=== PATIENT | male | born 1955 | race Hispanic/Latino ===

== ENCOUNTER → 2025-05-23 | Emergency (ER) | payer MEDICARE ==
[~2025-05-23] VITALS: Ht 172.7 cm; Wt 62.1 kg
[~2025-05-23] MED LIST: NIRM1TAB7 PO
--- NOTE | 2025-05-23 15:45 | EKG ---
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
--- NOTE | 2025-05-23 16:04 | HMCIMG ---
EXAM: CR Chest, 2 View. CLINICAL HISTORY: cough COMPARISON: None provided. FINDINGS: LUNGS: There is no mass, infiltrate, or acute pulmonary abnormality. PLEURAL SPACES: No pleural effusion or pneumothorax. MEDIASTINUM: The heart was predominately situated on the right side of the chest. The patient is slightly rotated to the right. BONES: No aggressive appearing osseous lesion seen. IMPRESSION: 1. No acute cardiopulmonary findings. 2. Dextrocardia. Recommend CT chest for further evaluation. /[place]
--- NOTE | 2025-05-23 16:10 | NUR ---
PT RETURNED FORM CT AT THIS TIME
[2025-05-23 16:13] LABS: IMMATURE GRANULOCYTE ABSOLUTE 0.01 K/uL (0-1); NUCLEATED RED BLOOD CELLS 0.0 % (0.0-0.19); PLATELET COUNT (AUTO) 168 K/uL (130-400); RED BLOOD CELL COUNT(AUTO) 4.39 MIL/uL (4.50-6.20); RED CELL DISTRIBUTION WIDTH 13.4 % (11.0-15.5); WHITE BLOOD COUNT (AUTO) 4.2 K/uL (4.8-10.8)
[2025-05-23 16:24] LABS: INR 1.08 (0.85-1.15)
[2025-05-23 16:25] LABS: CREATININE 0.7 mg/dL (0.5-1.3); GLOMERULAR FILTR. RATE CALC 100.0 mL/min (>90); GLUCOSE,RANDOM 119.0 mg/dL (70-105); SODIUM SERUM 140.0 mmol/L (136-145); UREA NITROGEN, BLOOD 17.0 mg/dL (7-18)
[2025-05-23 16:33] LABS: CREATINE KINASE, TOTAL 166.0 U/L (21-232)
--- NOTE | 2025-05-23 16:38 | HMCIMG ---
EXAM: CT Head Without Intravenous Contrast. CLINICAL HISTORY: 69-year-old male with syncope. TECHNIQUE: Axial computed tomography images of the head/brain without intravenous contrast. Dose reduction technique was used including one or more of the following: automated exposure control, adjustment of mA and kV according to patient size, and/or iterative reconstruction. COMPARISON: None. FINDINGS: BRAIN: Moderate atrophy. Moderate chronic ischemic changes. No acute intraparenchymal hemorrhage. No mass lesion. No CT evidence for acute territorial infarct. No midline shift or extra-axial collection. VENTRICLES: No hydrocephalus. ORBITS: The orbits are unremarkable. SINUSES AND MASTOIDS: The paranasal sinuses and mastoid air cells are clear. SOFT TISSUES: No significant facial or scalp soft tissue swelling evident. No radiopaque foreign body is seen. BONES: No acute skull fracture. IMPRESSION: 1. No acute intracranial abnormality. 2. Moderate atrophy and moderate chronic ischemic changes. /[place]
[2025-05-23 16:49] LABS: INFLUENZA TYPE A Negative For Type A (NEGATIVE); INFLUENZA TYPE B Negative For Type B (NEGATIVE)
--- NOTE | 2025-05-23 16:51 | HMCIMG ---
EXAM: CT Cervical Spine Without Intravenous Contrast. CLINICAL HISTORY: 69-year-old male with syncope. TECHNIQUE: Axial computed tomography images of the cervical spine without intravenous contrast. Sagittal and coronal reformations performed. Dose reduction technique was used including one or more of the following: automated exposure control, adjustment of mA and kV according to patient size, and/or iterative reconstruction. CONTRAST: None. COMPARISON: None provided. FINDINGS: BONES: No acute fracture or focal osseous lesion. Bony alignment is anatomic. DISCS / DEGENERATIVE CHANGES: Moderate to severe degenerative changes in the cervical spine, including disc space narrowing and osteophyte formation. SOFT TISSUES: No prevertebral soft tissue swelling. Moderate atherosclerotic calcifications of the bilateral carotid arteries. IMPRESSION: 1. No acute cervical spine fracture or dislocation. 2. Moderate to severe degenerative changes in the cervical spine, including disc space narrowing and osteophyte formation. 3. Moderate atherosclerotic calcifications of the bilateral carotid arteries, recommend carotid ultrasound for further workup. /[place]
[2025-05-23 17:00] LABS: COVID19 (SARS ANTIGEN RAPID) POSITIVE FOR SARS AG (NEGATIVE)
[2025-05-23] MEDS: LACTATED RINGERS 1000ML 1,000 ML IV ONE (17:33)
--- NOTE | 2025-05-23 17:35 | ERN ---
General Chief Complaint: Syncope Stated Complaint: SYNCOPE Time Seen by MD: 15:30 History of Present Illness Initial Comments 69-year-old male who presents for syncope x2. Patient reports he was using the restroom he had two episodes. Loss of consciousness. The 1st when he was walking, he had no preceding events. He went to the ground. Apparently he came to, and then the patient's girlfriend reports he had a 2nd syncopal episode. They are both brief. No seizure activity. He denies any preceding chest pains dyspnea has palpitations or any other symptoms. He does report that he has been having a sore throat and a bit of the chills last night. No vomiting or diarrhea. Allergies: Coded Allergies: No Known Drug Allergies (Unverified Allergy, Unknown, 05/23/25) Past Medical History Past Medical History: Hypertension Past Surgical History: Other ROS Dictation CONSTITUTIONAL: No chills, no fever, no weakness, no diaphoresis, no malaise. HEAD/FACE: No signs of trauma. EENT: No eye pain, no blurred vision, no tearing, no double vision, no ear pain, no ear discharge, no nose pain, no nasal congestion, no throat pain, no throat swelling, no mouth pain. RESPIRATORY: No cough, no orthopnea, no SOB, no stridor, no wheezing. CARDIOVASCULAR: Syncope. GASTROINTESTINAL/ABDOMINAL: No abdominal pain, no constipation, no diarrhea, no nausea, no vomiting. GENITOURINARY: No abnormal discharge, no dysuria, no frequent urination, no hematuria. No complaints of pain in the genitals. MUSCULOSKELETAL: No back pain, no gout, no joint pain, no joint swelling, no muscle pain, no muscle stiffness, no neck pain. INTEGUMENTARY: No change in color, no change in hair/nails, no dryness, no lesion, no lumps, no rash. NEUROLOGICAL/PSYCH: No anxiety, not depressed, no emotional problem, no headache, no numbness, no pre-existing deficit, no history of seizures, no tremors, no weakness. HEMATOLOGIC/LYMPHATIC: Not anemic, no history of blood clots, no apparent bleeding, no bruising, glands not swollen. All Systems Negative, Except as Noted. Physical Exam Physical Exam Dictation VITAL SIGNS: Reviewed. GENERAL APPEARANCE: Alert, oriented x3, no acute distress. EYES: PERRL, pink conjunctivas, eyelid no trauma, anterior chamber clear. EARS: Pinnas intact and no signs of trauma or erythema. Ear canals clear and no discharge. TMs no erythema. NOSE: No discharge, no bleeding. OROPHARYNX: Mouth normal, teeth no caries, tongue pink. Pharynx clear, no erythema. Tonsils no exudates, no abscesses noted. Mucous membrane moist. NECK: Supple, non-tender, no thyromegaly, no masses, no JVD, no bruits. BREAST: Deferred. CHEST: No tenderness, no crepitus, no paradoxical movement, no retractions. LUNGS: Clear, well-ventilated, symmetric, no rales, no wheezing, no rhonchi, no stridor, good breath sounds bilaterally. HEART: Regular rate, regular rhythm, no murmur, no gallops. VASCULAR: No peripheral edema. ABDOMEN: Soft, positive bowel sounds, nondistended, no guarding, nontender, no rebound, no masses no hepatomegaly, no splenomegaly, no Bui's sign, no hernias. RECTAL: Deferred. GENITAL: Deferred. NEUROLOGICAL: Normal speech, gross motor function intact, gross sensory function intact. MUSCULOSKELETAL: Neck nontender, full range of motion, back nontender, full range of motion. EXTREMITIES: Nontender, full range of motion. SKIN: Color pink, dry, no turgor, no rash, no lacerations, no abrasions, no contusions. LYMPHATICS: Deferred. Results Laboratory and Microbiology Lab and Micro Result Laboratory Tests Test 05/23/25 15:52 05/23/25 16:00 White Blood Count 4.2 K/uL (4.8-10.8) L Red Blood Count 4.39 MIL/uL (4.50-6.20) L Hemoglobin 13.5 g/dL (14.0-18.0) L Hematocrit 39.1 % (42-54) L Mean Corpuscular Volume 89.1 fL (79-99) Mean Corpuscular Hemoglobin 30.8 pg (27.0-33.0) Mean Corpuscular Hemoglobin Concent 34.5 g/dL (32.0-36.0) Red Cell Distribution Width 13.4 % (11.0-15.5) Platelet Count 168 K/uL (130-400) Mean Platelet Volume 10.6 fL (7.5-10.5) H Immature Granulocyte % (Auto) 0.2 % (0-1) Neutrophils (%) (Auto) 67.3 % (40.0-77.0) Lymphocytes (%) (Auto) 16.5 % (21.0-51.0) L Monocytes (%) (Auto) 15.8 % (3.0-13.0) H Eosinophils (%) (Auto) 0.0 % (0.0-8.0) Basophils (%) (Auto) 0.2 % (0.0-5.0) Neutrophils # (Auto) 2.9 K/uL (1.8-7.7) Lymphocytes # (Auto) 0.7 K/uL (1.0-4.8) L Monocytes # (Auto) 0.7 K/uL (0.1-1.0) Eosinophils # (Auto) 0.00 K/uL (0.00-0.70) Basophils # (Auto) 0.01 K/uL (0.00-0.20) Absolute Immature Granulocyte (auto 0.01 K/uL (0-1) Nucleated Red Blood Cells 0.0 % (0.0-0.19) White Cell Morphology Comment See comments Prothrombin Time 11.4 SEC (9.6-11.6) Prothromb Time International Ratio 1.08 (0.85-1.15) Activated Partial Thromboplast Time 30.2 SEC (26.3-35.5) Sodium Level 140 mmol/L (136-145) Potassium Level 3.3 mmol/L (3.5-5.1) L Chloride Level 103 mmol/L (101-111) Carbon Dioxide Level 31 mmol/L (21-32) Blood Urea Nitrogen 17 mg/dL (7-18) Creatinine 0.7 mg/dL (0.5-1.3) Glomerular Filtration Rate Calc 100 mL/min (>90) Random Glucose 119 mg/dL (70-105) H Lactic Acid Level 0.8 mmol/L (0.8-2.5) Total Calcium 8.6 mg/dL (8.5-10.1) Total Creatine Kinase 166 U/L (21-232) Troponin I High Sensitivity 7.6 ng/L (4-75) B-Type Natriuretic Peptide 80 pg/mL (0-100) Procalcitonin < 0.05 ng/mL (0.05-0.5) L Influenza Type A Antigen Negative For Type A Influenza Type B Antigen Negative For Type B SARS-CoV-2 Antigen (Rapid) POSITIVE FOR SARS AG MDM CC: Syncopal episode Historian: Patient Comorbidities: Hypertension Limitations by social determinants of health: None Differential diagnosis: Arrhythmia, cardiogenic syncope, benign causes syncope, electrolyte abnormality, infection, other. Vital signs: Temp 99.9, pulse 101, otherwise stable. This improved in the ER. EKG: Sinus rhythm, rate of 95, normal axis, good R-wave progression, IVCD nonspecific, no STEMI. Independently interpreted by me. Labs (independently ordered and interpreted by me): No leukocytosis, hemoglobin 30.5, no shift or bands. Coags are stable. Electrolytes are all stable. Lactic acid is stable. CK troponin stable. Procalcitonin normal BNP normal. COVID positive consistent with the patient's presentation. CT head without contrast per my independent interpretation shows no acute abnormalities Chest x-ray shows dextrocardia otherwise no acute abnormalities. Denies any CT of the cervical spine shows no acute fractures in his abnormalities. There was moderate and atherosclerosis independently a bilateral carotid arteries, radiologist recommends brought an ultrasound of the further worked up. It is not appear to be an emergency condition at this time. Patient received IV fluids here in the ER. Patient is very stable. He is ambulatory p.o. tolerant he has a normal examination, and normal orthostatic vital signs. I did offer the patient further observation and admission due to the syncopal episodes, but we had a long discussion and we agreed that the patient was likely febrile and having a syncopal episode related to the COVID symptoms. He reports that he already feels like he is improving, and he can be treated as an outpatient at this time. Very low suspicion for any neurologic or cardiac causes with the patient's syncope. At this point in time we will discharge the patient with a Paxlovid prescription recommend PCP follow up. Patient agrees with the plan. We will DC. ED Course Orders Procedure Category Date Status Time Lactated Ringers PHA 05/23/25 Complete 1000ml (Lactated 16:00 Cardiac Panel LAB 05/23/25 Complete 15:32 Cbc With Differential LAB 05/23/25 Complete 15:32 Basic Metabolic Panel LAB 05/23/25 Complete 15:32 Prothrombin Time With LAB 05/23/25 Complete INR 15:32 Partial LAB 05/23/25 Complete Thromboplastin Time 15:32 Urinalysis Profile LAB 05/23/25 Logged 15:32 12 Lead Ekg Tracing- EKG 05/23/25 Complete Technical 15:32 B-Type Natriuretic LAB 05/23/25 Complete Peptide 15:32 Ct Head/Brain W/O CT 05/23/25 Resulted Contrast 15:32 Blood Cult EDEL 05/23/25 In Process 15:32 Lactic Acid LAB 05/23/25 Complete 15:32 Procalcitonin LAB 05/23/25 Complete 15:32 Chest 1vw RAD 05/23/25 Resulted 15:32 Covid19 (Sars Antigen LAB 05/23/25 Complete Rapid) 15:32 Influenza Type A & B, LAB 05/23/25 Complete Rapid 15:32 Ct Cervical Spine W/O CT 05/23/25 Resulted Contrast 15:32 Current Medications Medications (Trade) Dose Ordered Sig/Magalis Route PRN Reason Start Time Stop Time Status Last Admin Dose Admin Lactated Ringer's 1,000 ml @ 0 mls/hr ONCE ONCE IV 05/23/25 16:00 05/23/25 16:01 DC Vital Signs Date Time Temp Pulse Resp B/P (MAP) Pulse Ox O2 Delivery O2 Flow Rate FiO2 05/23/25 15:32 98.8 100 18 118/85 100 Room Air* 0 21 05/23/25 15:21 99.9 101 12 117/71 98 Room Air 0 DX & DISP Disposition: Discharge Departure Impression: Primary Impression: Syncope Additional Impressions: COVID, Dehydration Condition: Stable Scripts Nirmatrelvir/Ritonavir (Paxlovid 150-100 mg (Moderate)) 150 Mg (10)-100 Mg (10) Tab.ds.pk 1 EACH PO BID, #1 PACK Prov: JER GOLDSMITH DO 05/23/25 Additional Instructions: You had a syncopal episode. You also tested positive for COVID and are mildly d ehydrated on your labs. Your syncopal episode is likely related to your COVID diagnosis. Your EKG is stable. The CT scan of your brain is unremarkable. Note that your chest x-ray shows mild twisting of your heart to the right. You can follow up with the cost manager regarding this. Also, the CT scan of your head did show some atherosclerosis of your neck vessels. I recommend that follow up with the primary doctor regarding further studies. Your lab work is unremarkable. You received IV fluids here in the ER. I have prescribed Paxlovid, which is an antiviral medication for COVID virus. Please take as prescribed. You can also take [id number] cough and cold medications as needed. Please follow up with your primary doctor later this week. Bring this paperwork with you. Referrals: SELF,REFERRAL (PCP) JER GOLDSMITH DO May 23, 2025 17:35
[2025-05-23 17:37] VITALS: BP 115/79; PULSE 88; RESP 18; TEMP 98.8; O2SAT 98
== END ==
LOC: EDH 15:20
DX: U07.1 COVID-19 (principal); R55 Syncope and collapse; E86.0 Dehydration; I10 Essential (primary) hypertension; Z98.890 Other specified postprocedural states
CPT/HCPCS: 99285; 70450; 71045; 87426; 82550; 84484; 80048; 83880; 85025; 85610; 85730; 87040 ×2; 87804 ×2; 83605; 36415; 72125; 93005; 84145; J7120